=== PATIENT | male | born 1965 | race Caucasian/White ===

== ENCOUNTER 2021-02-15 21:20 | Emergency (ER) | payer BC ==
[2021-02-15 22:52] LABS: Absolute Lymphocytes (CBC) 1.5 K/uL (0.7-4.9); Basophils % 0.2 % (0-1.3); Hematocrit 49.4 % (39.6-49.0); Lymphocytes % 9.9 % (15.3-44.8); MPV 8.2 fL (7.6-11.3); RBC Red Blood Cell Count 5.23 M/uL (4.33-5.43)
[2021-02-15] MEDS ORDERED: NA CHLORIDE 0.9% 1,000 ML ONE (22:55)
[2021-02-15] MEDS ORDERED: ONDANSETRON 4 MG/2 ML VIAL ONE (22:55)
[2021-02-15] MEDS ORDERED: MORPHINE 4 MG/ML SYR ONE (23:00)
[2021-02-15] MEDS ORDERED: PANTOPRAZOLE 40 MG INJ ONE (23:00)
[2021-02-15 23:22] LABS: Albumin 4.1 g/dL (3.4-5.0); Bilirubin Direct 2.5 mg/dL (0-0.2); Bilirubin Total 4.7 mg/dL (0.2-1.0); Potassium 5.4 mmol/L (3.5-5.1); Protein, Total 8.8 g/dL (6.4-8.2)
[2021-02-16] MEDS ORDERED: NA CHLORIDE 0.9% 1,000 ML ONE (00:07)
[2021-02-16] MEDS ORDERED: ACETAMINOPHEN 500 MG TAB ONE (00:19)
[2021-02-16] MEDS ORDERED: NA CHLORIDE 0.9% 100 ML ONE (00:34)
[2021-02-16] MEDS ORDERED: D5W 1,000 ML IV ONE (00:34)
[2021-02-16] MEDS ORDERED: INSULIN -REGULAR HUMAN 50 UNIT/0.5 ML ML ONE (00:34)
--- NOTE | 2021-02-16 01:30 | ER ---
Nurse's Notes 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 Coronavirus screen: Client denies travel out of the [place] in the last 14 days. Ebola Screen: Patient negative for fever greater than or equal to 101.5 degrees Fahrenheit, and additional compatible Ebola Virus Disease symptoms. Initial Sepsis Screen: Does the patient meet any 2 criteria? No. Patient's initial sepsis screen is negative. Does the patient have a suspected source of infection? No. Patient's initial sepsis screen is negative. Risk Assessment: Do you want to hurt yourself or someone else? Patient reports no desire to harm self or others. Onset of symptoms was February 15, 2021. 21:32 Method Of Arrival: Ambulatory vg1 21:32 Acuity: ROSALINO 3 vg1 Triage Assessment: 21:36 General: Appears in no apparent distress. uncomfortable, Behavior is calm, cooperative. vg1 Pain: Complains of pain in back and abdomen. GI: Reports nausea, vomiting. Historical: - Allergies: 21:35 No Known Allergies; vg1 - Home Meds: 21:35 Metformin Oral [Active]; protoxin [Active]; nadolol oral oral [Active]; Xifaxan oral vg1 oral [Active]; - PMHx: 21:35 Diabetes - NIDDM; Cirrhosis; vg1 21:36 Myocardial infarction; vg1 - Immunization history:: Adult Immunizations up to date. - Social history:: Smoking status: Patient reports the use of cigarette tobacco products, denies chronic smoking, but will smoke occasionally. Screenin:23 Abuse screen: Denies threats or abuse. Nutritional screening: No deficits noted. ea Tuberculosis screening: No symptoms or risk factors identified. Fall Risk None identified. Assessment: 22:30 General: Appears uncomfortable, Behavior is calm, cooperative, appropriate for age. ea Neuro: Level of Consciousness is awake, alert, obeys commands, Oriented to person, place, time. Cardiovascular: Patient's skin is warm and dry. Respiratory: Airway is patent Respiratory effort is even, unlabored, Respiratory pattern is regular, symmetrical. Derm: Skin is pink, warm \T\ dry. 23:30 Reassessment: Patient and/or family updated on plan of care and expected duration. Pain ea level reassessed. Patient is alert, oriented x 3, equal unlabored respirations, skin warm/dry/pink. 02/16 01:36 Reassessment: Patient and/or family updated on plan of care and expected duration. Pain ea level reassessed. Patient is alert, oriented x 3, equal unlabored respirations, skin warm/dry/pink. 02:55 Reassessment: Patient and/or family updated on plan of care and expected duration. Pain ea level reassessed. Patient is alert, oriented x 3, equal unlabored respirations, skin warm/dry/pink. EMS at facility for transfer, report given to EMS. Pt left via stretcher per EMS, tolerating well. Vital Signs: 02/15 21:32 BP 164 / 91; Pulse 116; Resp 20; Temp 98.7; Pulse Ox 99% ; Weight 81.65 kg; Height 5 vg1 ft. 7 in. (170.18 cm); Pain 9/10; 02/16 00:30 BP 148 / 65; Pulse 109; Resp 18; Pulse Ox 98% ; ea 02:06 BP 128 / 64; Pulse 108; Resp 18; Pulse Ox 98% ; ea 02/15 21:32 Body Mass Index 28.19 (81.65 kg, 170.18 cm) vg1 ED Course: 02/15 21:31 Patient arrived in ED. vg1 21:33 Triage completed. vg1 21:36 Arm band placed on. vg1 22:23 Angela Kim, ABBEY is Primary Nurse. ea 22:30 Alberto Saldaña PA is PHCP. cp 22:30 Harsha Candelario MD is Attending Physician. cp 22:30 Inserted saline lock: 20 gauge in left antecubital area, using aseptic technique. ea 23:22 Patient has correct armband on for positive identification. Bed in low position. Call ea light in reach. 02/16 00:04 CT Abd/Pelvis - IV Contrast Only In Process Unspecified. EDMS 01:05 Inserted saline lock: 24 gauge in left hand, using aseptic technique. ea 01:47 No provider procedures requiring assistance completed. Patient transferred, IV remains ea in place. Administered Medications: Discontinued: D5W 1000 ml IV at 150 ml/hr continuous Discontinued: Insulin Drip - (Insulin Regular Human 100 units, NS 0.9% 100 ml) IV at 4 units/hr continuous; Standard concentration 1unit/ml; Dose for DKA is 0.1 units/kg/hr 02/15 22:44 Drug: NS 0.9% 1000 ml Route: IV; Rate: 1 bolus; Site: left antecubital; ea 02/16 01:48 Follow up: Response: No adverse reaction; IV Status: Completed infusion; IV Intake: ea 1000ml 02/15 22:44 Drug: ProTONIX (pantoprazole) 40 mg Route: IVP; Site: left antecubital; ea 02/16 00:09 Follow up: Response: No adverse reaction ea 02/15 22:45 Drug: Zofran (Ondansetron) 4 mg Route: IVP; Site: left antecubital; ea 02/16 00:10 Follow up: Response: No adverse reaction ea 02/15 22:45 Drug: morphine 4 mg Route: IVP; Site: left antecubital; ea 02/16 00:10 Follow up: Response: No adverse reaction; Pain is decreased; RASS: Alert and Calm (0) 02/15 23:49 Drug: NS 0.9% 1000 ml Route: IV; Rate: 1 bolus; Site: left antecubital; ea 02/16 01:48 Follow up: Response: No adverse reaction; IV Status: Completed infusion; IV Intake: ea 1000ml 02/15 23:50 Drug: Tylenol 1000 mg Route: PO; ea 02/16 01:48 Follow up: Response: No adverse reaction ea 01:00 Drug: D5W 1000 ml Route: IV; Rate: 150 ml/hr; Site: left antecubital; ea 01:00 Drug: Insulin Drip - (Insulin Regular Human 100 units, NS 0.9% 100 ml) {Co-Signature: ha de guzman (Mary Hardy RN).} Route: IV; Rate: 4 units/hr; Site: left antecubital; 02:06 Drug: morphine 4 mg Route: IVP; Site: right antecubital; ea 03:05 Follow up: Response: No adverse reaction; Pain is decreased; RASS: Alert and Calm (0) ea Intake: 01:48 IV: 1000ml; Total: 1000ml. ea 01:48 IV: 1000ml; Total: 2000ml. ea Outcome: 01:29 ER care complete, transfer ordered by MD. roberts 03:02 Transferred by ground EMS to other acute care facility: [facility]. Transfer form ea completed. 03:02 Condition: stable 03:02 Instructed on the need for transfer, Demonstrated understanding of instructions. 03:04 Patient left the ED. ea Signatures: Dispatcher [employer] EDMS Alberto Saldaña PA PA cp Antunez, Elena, RN RN ea Garcia, Victoria RN RN vg1 Mary Hardy RN bb Corrections: (The following items were deleted from the chart) 03:05 02:55 Response: No adverse reaction ea ea
--- NOTE | 2021-02-16 01:31 | EDPHYS ---
Physician Documentation [facility] Name: Kenneth Pearce Age: 55 yrs Sex: Male : 1965 Arrival Date: 02/15/2021 Time: 21:31 Bed 18 Private MD: ED Physician Harsha Candelario HPI: 02/15 22:45 This 55 yrs old Male presents to ER via Ambulatory with complaints of cp Abdominal Pain, Low Back Pain. 22:45 The patient presents with abdominal pain mid abdomen. Onset: The symptoms/episode cp began/occurred today. Associated signs and symptoms: Pertinent positives: nausea and vomiting since this morning, Pertinent negatives: chest pain, constipation, diarrhea, testicular pain, vomiting blood. 22:45 The symptoms are described as crampy. cp Historical: - Allergies: 21:35 No Known Allergies; vg1 - Home Meds: 21:35 Metformin Oral [Active]; protoxin [Active]; nadolol oral oral [Active]; Xifaxan oral vg1 oral [Active]; - PMHx: 21:35 Diabetes - NIDDM; Cirrhosis; vg1 21:36 Myocardial infarction; vg1 - Immunization history:: Adult Immunizations up to date. - Social history:: Smoking status: Patient reports the use of cigarette tobacco products, denies chronic smoking, but will smoke occasionally. ROS: 22:50 Constitutional: Positive for poor PO intake, Negative for body aches, chills, fever. cp 22:50 Eyes: Negative for injury, pain, redness, and discharge. cp 22:50 ENT: Negative for ear pain, sore throat, difficulty swallowing, difficulty handling secretions. 22:50 Cardiovascular: Negative for chest pain, palpitations. 22:50 Respiratory: Negative for cough, shortness of breath, wheezing. 22:50 Abdomen/GI: Positive for abdominal pain, nausea and vomiting, Negative for diarrhea, constipation, hematemesis, black/tarry stool, rectal bleeding. 22:50 Back: Positive for pain with movement, Negative for radiated pain. 22:50 : Negative for urinary symptoms. 22:50 Neuro: Negative for altered mental status, headache, weakness. 22:50 All other systems are negative. Exam: 23:00 Constitutional: The patient appears in no acute distress, alert, awake, cp non-diaphoretic, non-toxic, well developed, well nourished. 23:00 Head/Face: Normocephalic, atraumatic. cp 23:00 Eyes: Periorbital structures: appear normal, Conjunctiva: normal, no exudate, no injection, Sclera: no appreciated abnormality, Lids and lashes: appear normal, bilaterally. 23:00 ENT: External ear(s): are unremarkable, Nose: is normal, Mouth: Lips: moist, Oral mucosa: pink and intact, moist, Posterior pharynx: Airway: no evidence of obstruction, patent. 23:00 Chest/axilla: Inspection: normal, Palpation: is normal, no crepitus, no tenderness. 23:00 Cardiovascular: Rate: tachycardic, Rhythm: regular, Edema: is not appreciated, JVD: is not appreciated. 23:00 Respiratory: the patient does not display signs of respiratory distress, Respirations: normal, no use of accessory muscles, no retractions, labored breathing, is not present, Breath sounds: are clear throughout, no decreased breath sounds, no stridor, no wheezing. 23:00 Abdomen/GI: Inspection: abdomen appears normal, Bowel sounds: active, all quadrants, Palpation: soft, in all quadrants, moderate abdominal tenderness, in all quadrants, rebound tenderness, is not appreciated, voluntary guarding, is elicited in all quadrants. 23:00 Back: CVA tenderness, is absent. 23:00 Skin: cellulitis, is not appreciated, no rash present. 23:00 Neuro: Orientation: to person, place \T\ time. Mentation: is normal, Cerebellar function: is grossly normal, Motor: moves all fours, strength is normal, Sensation: is normal. 02/16 00:11 ECG was reviewed by the Attending Physician. cp Vital Signs: 02/15 21:32 BP 164 / 91; Pulse 116; Resp 20; Temp 98.7; Pulse Ox 99% ; Weight 81.65 kg; Height 5 vg1 ft. 7 in. (170.18 cm); Pain 9/10; 02/16 00:30 BP 148 / 65; Pulse 109; Resp 18; Pulse Ox 98% ; ea 02:06 BP 128 / 64; Pulse 108; Resp 18; Pulse Ox 98% ; ea 02/15 21:32 Body Mass Index 28.19 (81.65 kg, 170.18 cm) vg1 MDM: 02/15 22:40 Patient medically screened. 02/16 01:35 Data reviewed: vital signs, nurses notes, lab test result(s), EKG, radiologic studies, cp CT scan, I have discussed the patient's presentation/case with the attending Emergency Department Physician;. 01:35 Test interpretation: by ED physician or midlevel provider: ECG. 02/15 22:25 Order name: Basic Metabolic Panel; Complete Time: 23:23 02/15 23:23 Interpretation: Normal except: K 5.4; CO2 12; GLUC 185; BUN 21; GFR 69. 02/15 22:25 Order name: CBC with Diff; Complete Time: 23:23 02/15 23:28 Interpretation: Normal except: WBC 15.50; HCT 49.4; RDW 15.4; JOHN% 84.2; LYM% 9.9; NEUT cp A 13.0. 02/15 22:25 Order name: Hepatic Function; Complete Time: 23:23 02/16 00:43 Interpretation: Normal except: AST 282; ALT 173; ALK 355; BILIT 4.7; BILID 2.5; TP 8.8; cp GLOB 4.7; A/G 0.9. 02/15 22:25 Order name: Lipase; Complete Time: 23:23 02/16 01:31 Order name: Glucose, Ancillary Testing EDOK 02/15 22:43 Order name: CT Abd/Pelvis - IV Contrast Only 02/15 22:25 Order name: IV Saline Lock; Complete Time: 23:21 02/15 22:25 Order name: Labs collected and sent; Complete Time: 23:21 02/15 23:31 Order name: EKG; Complete Time: 23:31 02/15 23:31 Order name: EKG - Nurse/Tech; Complete Time: 00:08 02/15 23:57 Order name: NPO; Complete Time: 00:09 EC:11 Rate is 105 beats/min. Rhythm is regular. PA interval is normal. QRS interval is cp normal. QT interval is normal. Interpreted by me. Reviewed by me. Administered Medications: Discontinued: D5W 1000 ml IV at 150 ml/hr continuous Discontinued: Insulin Drip - (Insulin Regular Human 100 units, NS 0.9% 100 ml) IV at 4 units/hr continuous; Standard concentration 1unit/ml; Dose for DKA is 0.1 units/kg/hr 02/15 22:44 Drug: NS 0.9% 1000 ml Route: IV; Rate: 1 bolus; Site: left antecubital; ea 02/16 01:48 Follow up: Response: No adverse reaction; IV Status: Completed infusion; IV Intake: ea 1000ml 02/15 22:44 Drug: ProTONIX (pantoprazole) 40 mg Route: IVP; Site: left antecubital; ea 02/16 00:09 Follow up: Response: No adverse reaction ea 02/15 22:45 Drug: Zofran (Ondansetron) 4 mg Route: IVP; Site: left antecubital; ea 02/16 00:10 Follow up: Response: No adverse reaction ea 02/15 22:45 Drug: morphine 4 mg Route: IVP; Site: left antecubital; ea 02/16 00:10 Follow up: Response: No adverse reaction; Pain is decreased; RASS: Alert and Calm (0) ea 02/15 23:49 Drug: NS 0.9% 1000 ml Route: IV; Rate: 1 bolus; Site: left antecubital; ea 02/16 01:48 Follow up: Response: No adverse reaction; IV Status: Completed infusion; IV Intake: ea 1000ml 02/15 23:50 Drug: Tylenol 1000 mg Route: PO; ea 02/16 01:48 Follow up: Response: No adverse reaction ea 01:00 Drug: D5W 1000 ml Route: IV; Rate: 150 ml/hr; Site: left antecubital; ea 01:00 Drug: Insulin Drip - (Insulin Regular Human 100 units, NS 0.9% 100 ml) {Co-Signature: ha de guzman (Mary Hardy RN).} Route: IV; Rate: 4 units/hr; Site: left antecubital; 02:06 Drug: morphine 4 mg Route: IVP; Site: right antecubital; ea 03:05 Follow up: Response: No adverse reaction; Pain is decreased; RASS: Alert and Calm (0) ea Disposition: 02/16/21 01:29 Transfer ordered to Other Acute Care Facility. Diagnosis are Diabetes mellitus due to underlying condition with ketoacidosis, Liver disease, unspecified, Nausea and vomiting. - Reason for transfer: Higher level of care. - Accepting physician is DR Durand. - Condition is Stable. - Problem is new. - Symptoms have improved. Signatures: Dispatcher [employer] EDMS Alberto Saldaña PA PA cp Antunez, Elena, RN RN Blanca Calloway RN RN vg1 Mary Hardy RN bb Corrections: (The following items were deleted from the chart) 00:44 00:43 Normal except: AST 282; ALT 173; ALK 355; BILIT 4.7; BILID 2.5; TP 8.8; GLOB 4.7. cp cp 03:04 01:29 02/16/2021 01:29 Transfer ordered to Other Acute Care Facility. Diagnosis is ea Diabetes mellitus due to underlying condition with ketoacidosis; Liver disease, unspecified; Nausea and vomiting. Reason for transfer: Higher level of care. Accepting physician is DR Durand. Condition is Stable. Problem is new. Symptoms have improved. cp
[2021-02-16] MEDS ORDERED: MORPHINE 4 MG/ML SYR ONE (02:18)
[2021-02-16 03:09] VITALS: TEMP 98.7
[2021-02-16 03:10] VITALS: O2SAT 98
[2021-02-16 03:11] VITALS: BP 128/64
--- NOTE | 2021-02-16 10:26 | EKG ---
Test Date: 2021-02-16 Test Time: 00:04:19 [employer] Engineer: KRISHNA MEASUREMENT RESULTS: Intervals: Rate: 105 RI: 196 QRSD: 80 QT: 350 QTc: 462 [place]: P: 73 RI: 196 QRS: 67 T: 65 INTERPRETIVE STATEMENTS: Sinus tachycardia Otherwise normal ECG No previous ECG available for comparison Electronically Signed On 02-16-21 10:25:33 CDT by Salvatore Cruz
--- NOTE | 2021-02-16 10:38 | RAD REPORT ---
EXAM DESCRIPTION: CT - Abdomen Pelvis W Contrast - 02/16/2021 6:55 am CLINICAL HISTORY: The patient is 55 years old and is Male; ABD PAIN TECHNIQUE: Axial computed tomography images of the abdomen and pelvis with intravenous contrast. S agittal and coronal reformatted images were created and reviewed. This CT exam was performed using one or more of the following dose reduction techniques: automated exposure control, adjustment of t he mA and/or kV according to patient size, and/or use of iterative reconstruction technique. COMPARISON: No relevant prior studies available. FINDINGS: Lung bases: Unremarkable. No mass. No consolidation. ABDOMEN: Liver: Cirrhotic appearing liver with diffuse hepatic steatosis. Gallbladder and bile ducts: Gallbladder is surgically absent. No ductal dilation. Pancreas: Unremarkable. No mass. No ductal dilation. Spleen: Unremarkable. No splenomegaly. Adrenals: There is indeterminate 1.6 cm right adrenal nodule. Kidneys and ureters: Unremarkable. No solid mass. No hydronephrosis. Stomach and bowel: Scattered colonic diverticula without evidence of diverticulitis. No obstruction. PELVIS: Appendix: No findings to suggest acute appendicitis. Bladder: Unremarkable. No mass. Reproductive: Unremarkable as visualized. ABDOMEN and PELVIS: Intraperitoneal space: Unremarkable. No free air. No significant fluid collection. Bones/joints: No acute fracture. No dislocation. Soft tissues: Unremarkable. 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 There is an intrahepatic portosystemic shunt. No abdominal aortic aneurysm. Lymph nodes: Unremarkable. No enlarged lymph nodes. IMPRESSION: 1. Cirrhotic appearing liver with diffuse hepatic steatosis. 2. 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 3. There is an intrahepatic portosystemic shunt. 4. Gallbladder is surgically absent. 5. There is indeterminate 1.6 cm right adrenal nodule. ACR White Paper guidelines (Camacho et al. JACR 2017; 14(8):9687-0115) suggest the following. If there is no history of malignancy consid er a follow-up low dose, non-contrast adrenal CT or chemical-shift adrenal MRI in 12 months. If the re is a history of malignancy consider a low dose, non-emergent, non-contrast adrenal CT or chemical- shift adrenal MRI follow-up study. Electronically signed by: Ryan Hanna MD 02/16/2021 12:51 AM CDT Due to temporary technical issues with the PACS/Fluency reporting system, reports are being signed by the in house radiologist without review as a courtesy to ensure prompt reporting. The interpreting r adiologist is fully responsible for the content of the report.
== END 2021-02-16 03:04 ==
LOC: ER 21:20
DX: K74.60 Unspecified cirrhosis of liver (principal); E08.10 Diabetes mellitus due to underlying condition with ketoacidosis without coma; I25.2 Old myocardial infarction; Z72.0 Tobacco use
CPT/HCPCS: 93005; 85025; 80048; 36415; 82947 ×2; 80076; 83690; 74177; Q9967; C9113; J7030; J2405; 99285